=== PATIENT | female | born 1960 | race Caucasian/White ===

== ENCOUNTER 2021-03-27 12:08 | Emergency (ER) | payer MEDICARE ==
[~2021-03-27] VITALS: Ht 152.4 cm; Wt 74.1 kg
[2021-03-27 12:34] VITALS: BP 110/57; PULSE 69; TEMP 98.1
[2021-03-27 13:36] LABS: BASO # 0.1 K/mm3 (0.0-0.2); BASO % 1.2 % (0.0-2.0); EOS # 0.2 K/mm3 (0.0-0.7); EOS % 4.3 % (0-4.0); GRAN # 2.5 K/mm3 (1.4-6.5); GRAN % 49.9 % (42.2-75.2); HEMOGLOBIN 12.2 g/dl (12.5-16.0); LYMPH # 1.8 K/mm3 (1.2-3.4); MEAN CELL VOLUME 85 fl (80.0-100.0); MEAN CORPUSCULAR HEMOGLOBIN 28 pg (27.0-31.0); MEAN CORPUSCULAR HGB CONC 33 g/dl (33.0-37.0); MEAN PLATELET VOLUME 10.3 fl (7.4-10.4); MONO # 0.4 K/mm3 (0.1-0.6); MONO % 8.4 % (1.7-9.3); PLATELET COUNT 267 K/mm3 (130-400); RED BLOOD COUNT 4.31 M/mm3 (4.10-5.30); REDCELL DISTRIBUTION WIDTH-CV 11.9 % (11.5-14.5)
[2021-03-27 13:37] LABS: HEMATOCRIT 36.8 % (37.0-47.0)
[2021-03-27 13:48] LABS: COLLECTION METHOD CLEAN CATCH
[2021-03-27 13:54] LABS: ALBUMIN 3.8 gm/dL (3.4-4.8); BILIRUBIN,TOTAL 0.6 mg/dL (0.2-1.2); C-REACTIVE PROTEIN 0.2 mg/dL (0.00-0.50); CREATININE, serum 0.85 mg/dL (0.57-1.11); POTASSIUM 4.3 mmol/L (3.5-4.5); TOTAL PROTEIN 6.6 gm/dL (6.2-8.1)
[2021-03-27 13:56] LABS: MUCOUS Present /lpf; PH 5 (5-8); SQUAMOUS EPITHELIAL 0-2 /hpf; URINE APPEARANCE Hazy; URINE BACTERIA None Seen /hpf; URINE BILIRUBIN Negative (NEGATIVE); URINE BLOOD 2+ (NEGATIVE); URINE COLOR Yellow; URINE GLUCOSE Negative (NEGATIVE); URINE KETONE Negative (NEGATIVE); URINE LEUKOCYTE ESTERASE Negative (NEGATIVE); URINE NITRATE Negative (NEGATIVE); URINE PROTEIN(semi-quant) Negative (NEGATIVE); URINE UROBILINOGEN Negative (NEGATIVE)
== END 2021-03-27 15:20 | disposition home or self-care (01) ==
LOC: COL.ER 12:08
PROVIDERS: Nurse Practitioner
DX: G43.909 Migraine, unspecified, not intractable, without status migrainosus (principal); M79.7 Fibromyalgia; F17.200 Nicotine dependence, unspecified, uncomplicated
CPT/HCPCS: J2270

== ENCOUNTER 2021-07-05 11:02 | Emergency (ER) | payer MEDICARE ==
[~2021-07-05] VITALS: Ht 165.1 cm; Wt 71.8 kg
[2021-07-05 12:01] LABS: BASO % 0.4 % (0.0-2.0); EOS % 0.8 % (0.0-4.0); GRAN # 3.4 K/mm3 (1.4-6.5); HEMOGLOBIN 11.9 g/dl (12.5-16.0); LYMPH % 19.4 % (20.0-51.0); MEAN CELL VOLUME 88 fl (80.0-100.0); MEAN CORPUSCULAR HEMOGLOBIN 29 pg (27-31); MEAN CORPUSCULAR HGB CONC 32 g/dl (33.0-37.0); MEAN PLATELET VOLUME 10.2 fl (7.4-10.4); MONO # 0.6 K/mm3 (0.1-0.6); MONO % 11.2 % (1.7-9.3); PLATELET COUNT 250 K/mm3 (130-400); RED BLOOD COUNT 4.16 M/mm3 (4.10-5.30); REDCELL DISTRIBUTION WIDTH-CV 12.6 % (11.5-14.5)
[2021-07-05 12:02] LABS: HEMATOCRIT 36.7 % (37.0-47.0)
[2021-07-05 12:18] LABS: ALANINE AMINOTRANSFERASE 12 U/L (0-55); ALBUMIN 3.8 gm/dL (3.4-4.8); ALKALINE PHOSPHATASE 69 U/L (40-150); AST,SGOT 20 U/L (5-34); BILIRUBIN,TOTAL 0.5 mg/dL (0.2-1.2); BLOOD UREA NITROGEN 9 mg/dL (10-20); CALCIUM 8.2 mg/dL (8.4-10.2); CARBON DIOXIDE 19 mmol/L (23-31); CHLORIDE 104 mmol/L (98-107); CREATININE, serum 0.83 mg/dL (0.57-1.11); GLUCOSE 99 mg/dL (70-99); POTASSIUM 3.7 mmol/L (3.5-4.5); SODIUM 136 mmol/L (136-145)
[2021-07-05 12:19] LABS: ANION GAP 13 mmol/L (7-16)
[2021-07-05 12:27] LABS: TROPONIN-I < 0.010 ng/mL (0.00-0.033)
[2021-07-05 14:00] VITALS: BP 116/66; PULSE 76; TEMP 98.1
== END 2021-07-05 14:00 | disposition home or self-care (01) ==
LOC: COL.ER 11:02
PROVIDERS: Personal Emergency Response Attendant
DX: U07.1 COVID-19 (principal)

== ENCOUNTER 2023-10-14 06:23 | Day surgery (SDC) | payer MEDICARE ==
[~2023-10-14] VITALS: Ht 152.4 cm; Wt 69.0 kg
[~2023-10-14 06:23] MED LIST: AMBIEN 10MG10 MG PO; ASPIRIN 32325 MG/TAB PO; CELEXA 20MG20 MG/TAB PO; LIPITOR 10MG10 MG PO; LR 1,000 ML IV SCH; MAXALT5 MG PO; NORCO 325 MG-51 TAB PO; Ondansetron 4 MG/2 ML VIAL IV PRN; PROTONIX 40MG T40 MG PO; SOMA 350MG350 MG/TAB PO; SYNTHROID0.112 MG/T PO; VOLTAREN GEL 1%1 TU TP; XANAX 0.5MG0.5 MG PO
[2023-10-14] MEDS ORDERED: Lidocaine PF 2% (20 MG/ML) 5 ML VIAL ONE (07:28)
[2023-10-14 08:10] VITALS: BP 134/82; PULSE 72; TEMP 96.7
[2023-10-14 08:15] VITALS: BP 133/103; PULSE 72
[2023-10-14 08:30] VITALS: BP 126/81; PULSE 71
--- NOTE | 2023-10-14 08:45 | NUR ---
0810- PATIENT RETURNS TO [facility] [place] [facility] VIA CART. PT AWAKE AND ALERT. RESPIRATIONS UNLABORED. AMBULATED TO RECLINER CHAIR WITH 2:1 SBA. PT DENIES NAUSEA OR ABDOMINAL PAIN. HOOKED UP TO MONITOR AND VS OBTAINED. CALL LIGHT AT SIDE. 0816- PATIENT TOLERATING PEPSI AND JELLO WITHOUT NAUSEA OR DIFFICULTY SWALLOWING. 0817- DR. MARQUES IN ROOM SPEAKING WITH PATIENT. 0828- D/C INSTRUCTIONS REVIEWED WITH PATIENT. PT VERBALIZED UNDERSTANDING AND A COPY OF INSTRUCTIONS PROVIDED IN D/C FOLDER. 0836- PATIENT DRESSES SELF. 0845- PATIENT DISCHARGED FROM UNIT VIA W/C TO A PERSONAL VEHICLE. PT LEFT HOSPITAL IN STABLE CONDITION.
[2023-10-14 10:35] VITALS: BP 130/90; PULSE 88; TEMP 97.4
== END 2023-10-14 08:45 | disposition home or self-care (01) ==
LOC: SDCO 06:23
DX: R13.10 Dysphagia, unspecified (principal); K21.9 Gastro-esophageal reflux disease without esophagitis; K44.9 Diaphragmatic hernia without obstruction or gangrene; K29.71 Gastritis, unspecified, with bleeding; Z87.891 Personal history of nicotine dependence; Z87.19 Personal history of other diseases of the digestive system
CPT/HCPCS: C1726; J2704; J7120